=== PATIENT | female | born 1950 | race Caucasian/White ===

== ENCOUNTER 2018-10-14 11:50 | Inpatient (IN) | payer MEDICARE, BC ==
[~2018-10-14] VITALS: Ht 161.3 cm; Wt 68.0 kg
--- NOTE | ~2018-10-14 | EC ---
PATIENT:MATHIEU YOUNGER DATE OF SERVICE: 10/14/18 SEX: F MEDICAL RECORD: [id number] DATE OF : 54 LOCATION:D.MS [facility] AGE OF PATIENT: 68 ADMISSION DATE: 10/14/18 REFERRING PHYSICIAN: INTERPRETING PHYSICIAN: SUREKHA HERRERA MD ECHOCARDIOGRAM REPORT ECHO CHARGES 4 ECHO COMPLETE Date: 10/15/18 CLINICAL DIAGNOSIS: HTN ECHOCARDIOGRAPHIC MEASUREMENTS (adult normal given) AC root (d.<3.7cm) 3.4 cm LV Septum d (<1.2 cm> 1.2 cm Valve Excursion 1.6 cm LV Septum (systole) 1.6 cm Left Atria (s.<4.0cm> 3.4 cm LVPW d(<1.2cm) 1.6 cm RV (d.<2.3cm) 3.6 cm LVPW (sytole) 1.7 cm LV diastole(<5.6CM) 4.5 cm MV E-F(>70mm/sec) cm LV systole 3.0 cm LVOT Diameter 1.7 cm MV exc.(>10mm) 1.2 cm Est.ejection fraction (50-75%) % DOPPLER: LVIT cm/sec A 112 cm/sec E 101 cm/sec LA cm/sec RVSP 21 mmHg LVOT 154 cm/sec AOP1/2T m/s Asc. Ao 165 cm/sec RVOT 69 cm/sec RA cm/sec PA 112 cm/sec AV Gradient Peak 10.95mmHg AV Mean 5.04 mmHg AV Area 2.5 cm MV Gradient Peak 5.77 mmHg MV Mean 2.57 mmHg MV Area cm COMMENTS: Textbook Associate: Brock WISE [employer] Manager: 1 Dr. Herrera TAPE# PACS Pericardial Effusion N DATE OF SERVICE: 10/15/2018 FINDINGS: 1. Left ventricular chamber size is within normal limits. Left ventricular systolic function is normal. Overall ejection fraction is estimated at 60%. 2. Left atrium, right atrium, and right ventricle chamber sizes are within normal limit. 3. Valvular structures have normal structure and motion. 4. Doppler interrogation reveals no significant valvular insufficiency or stenosis. Pulmonary systolic pressure is normal, estimated at 21 mmHg. ECHOCARDIOGRAM REPORT [id number] MATHIEU YOUNGER 5. No evidence of pericardial effusion or left ventricular thrombus. TRANSINT:[id number] Voice Confirmation ID: [id number] DOCUMENT ID: [id number] SUREKHA HERRERA MD CC: [id number] DICTATION DATE: 10/15/18 1335 CORRECTIONAL THERAPY DIRECTOR: 10/15/18 1424 ADM IN [place] [address] [place] [address]
[2018-10-14] MEDS ORDERED: TENORMIN50 MG PO (11:56)
[2018-10-14] MEDS ORDERED: NORVASC2.5 MG PO (11:57)
[2018-10-14 13:07] LABS: HEMATOCRIT 48.6 % (36.0-48.0); HEMOGLOBIN 17.2 g/dL (12-16); MCH 32.1 pg (26.0-34.0); MCHC 35.4 g/dL (31.0-37.0); MCV 90.7 fL (80.0-100.0); MEAN PLATELET VOLUME 11.3 fL (7.4-10.4); PLATELET COUNT 160 10x3/uL (130-400); RBC 5.36 10x6/uL (4.00-5.40); RDW 14.1 % (11.5-14.5); WBC 25.8 10x3/uL (4.8-10.8)
[2018-10-14 13:16] LABS: ANION GAP 22.6 mmol/L (8-16); CALCIUM 8.4 mg/dL (8.5-10.1); CARBON DIOXIDE 18.9 mmol/L (21.0-32.0); CREATININE - SERUM 1.3 mg/dL (0.6-1.3); POTASSIUM - SERUM 3.5 mmol/L (3.5-5.1); TROPONIN-I 0.052 ng/mL (0.000-0.060)
[2018-10-14 13:30] LABS: ALBUMIN 2.9 g/dL (3.4-5.0); BILIRUBIN - TOTAL 2.01 mg/dL (0.2-1.3); PROTEIN - SERUM 7.6 g/dL (6.4-8.2)
[2018-10-14 13:58] LABS: LYMPHOCYTES 8 % (15-50); MONOCYTES 10 % (2-11); NEUTROPHILS 71 % (40-80); PLATELET ESTIMATE NORMAL; ROULEAUX OCC
[2018-10-14 15:47] LABS: APPEARANCE CLEAR (CLEAR); COLOR DK YELLOW (YELLOW); NITRITE NEGATIVE (NEGATIVE); PROTEIN 1+ mg/dL (NEGATIVE)
[2018-10-14 15:48] LABS: BILIRUBIN NEGATIVE (NEGATIVE); EPITHELIAL CELLS OCC /hpf (0-5); GLUCOSE NEGATIVE (NEGATIVE); KETONE NEGATIVE (NEGATIVE); RED CELLS - URINE OCC /hpf (0-5); UROBILINOGEN NORMAL (NORMAL); WHITE CELLS - URINE 0-5 /hpf (0-5)
[2018-10-14 15:49] LABS: BACTERIA MANY /hpf (NONE SEEN)
[2018-10-14 15:50] LABS: AMORPHOUS SEDIMENT <1+ /lpf (NONE SEEN)
[2018-10-14 21:55] VITALS: BP 115/54
[2018-10-14 22:43] VITALS: BP 115/54; BMI 26.2
[2018-10-15] VITALS: BP 120/56
[2018-10-15 05:38] VITALS: BP 110/52
[2018-10-15 06:41] LABS: HEMATOCRIT 34.4 % (36.0-48.0); HEMOGLOBIN 12.1 g/dL (12-16); MCH 31.9 pg (26.0-34.0); MCHC 35.2 g/dL (31.0-37.0); MCV 90.8 fL (80.0-100.0); MEAN PLATELET VOLUME 11.8 fL (7.4-10.4); PLATELET COUNT 200 10x3/uL (130-400); RBC 3.79 10x6/uL (4.00-5.40); RDW 14.4 % (11.5-14.5); WBC 24.8 10x3/uL (4.8-10.8)
[2018-10-15 07:10] LABS: ALKALINE PHOSPHATASE 70 U/L (46-116); BILIRUBIN - TOTAL 1.82 mg/dL (0.2-1.3); CALC OSMOLALITY 282 mosm/kg (275-300); CALCIUM 7.9 mg/dL (8.5-10.1); CHLORIDE - SERUM 101 mmol/L (98-107); CKMB 3.5 U/L (0.0-3.6); CREATININE - SERUM 1.1 mg/dL (0.6-1.3); GLUCOSE 127 mg/dL (74-106); PROTEIN - SERUM 6.8 g/dL (6.4-8.2); SODIUM 138 mmol/L (136-145); UREA NITROGEN 26 mg/dL (7-18); eGFR NON AFRICAN AMERICAN 53 mL/min (90-120)
[2018-10-15 07:14] LABS: ALBUMIN 2.1 g/dL (3.4-5.0); ALT (SGPT) 119 U/L (10-68); CREATINE KINASE 6401 UL (21-215)
[2018-10-15 07:16] LABS: TROPONIN-I 0.258 ng/mL (0.000-0.060)
[2018-10-15 07:17] LABS: POTASSIUM - SERUM 2.5 mmol/L (3.5-5.1)
[2018-10-15 08:18] LABS: ANISOCYTOSIS OCC; LYMPHOCYTES 3 % (15-50); MONOCYTES 7 % (2-11); NEUTROPHILS 75 % (40-80); ROULEAUX OCC
[2018-10-15 08:25] LABS: PLATELET ESTIMATE NORMAL
[2018-10-15 08:45] VITALS: BP 111/53
[2018-10-15 12:45] VITALS: BP 111/58
[2018-10-15 13:13] VITALS: Ht 161.3 cm; Wt 68.0 kg
--- NOTE | 2018-10-15 13:25 | HP ---
PATIENT: MATHIEU YOUNGER MEDICAL RECORD: [id number] ACCOUNT: [id number] LOCATION:D.MS [facility] : [birth year] ADMISSION DATE: 10/14/18 PCP: ADA PORTER HISTORY AND PHYSICAL EXAMINATION REASON FOR ADMISSION: Fever, confusion, and diarrhea. HISTORY OF PRESENT ILLNESS: The patient is a 68-year-old 3 black female who presents with 2-day history of intermittent diarrhea, fever and chills, and not feeling well. She has had minimal cough, her states. He brought her to the Emergency Room for these reasons. He said her stools have been 2-3, loose, and watery for 2 days; no previous antibiotics. He said she is little bit confused today as well. She denies chest pain. She has coughed up a little bit of bloody sputum. PAST MEDICAL HISTORY: Essential hypertension, hyperlipidemia, and remote history of depression. PAST SURGICAL HISTORY: times 2. She is 5. FAMILY HISTORY: Mother at 90 of old age. Father in his 40s with postoperative complications. Maternal grandmother lived to be 95. 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 ALLERGIES: None mentioned. HABITS: Smoking history is half pack a day for 40 years. Denies alcohol use. HOME MEDICATIONS: Norvasc 2.5 mg daily and atenolol 50 mg a day. REVIEW OF SYSTEMS: GENERAL: Chills without documented fever, some confusion, poor appetite. HEENT: No recent visual change, sinus congestion, sore throat, or hearing difficulty. RESPIRATORY: She has little bit of cough and has bloody sputum, but no shortness of breath or chest pain. CARDIAC: No palpitations, exertional chest pain, or claudication. Positive history of hypertension. GASTROINTESTINAL: She has had no nausea. She has had 2-3 loose stools with vague abdominal cramping for the last 2 days. ENDOCRINE: Denies polyuria, polydipsia, heat and cold intolerance. NEUROLOGIC: No history of stroke, TIA, vascular headaches, or seizures. PSYCHIATRIC: Denies depressed moods. She had some intermittent anxiety and depression in the past, not treated recently. PHYSICAL EXAMINATION: VITAL SIGNS: Temperature is 100 degrees Fahrenheit tympanic, pulse 96 and regular, respirations are 18, blood pressure 124/66, and O2 sat is 97% on 2 liters. GENERAL: The patient is somewhat confused without localizing neurologic signs. She gives her history. HEENT: Normocephalic. Eyes are clear and nonicteric. Oropharynx has dry mucous membranes. HISTORY AND PHYSICAL [id number] MATHIEU YOUNGER NECK: Supple. No bruits. CHEST: Decreased breath sounds in the right base with inspiratory wheezes in right upper lobe. HEART: Tachycardic without murmur. BREASTS: Symmetrical. ABDOMEN: Mildly obese, soft, and nontender with active bowel sounds throughout. There is a small ventral hernia that is reducible. RECTAL: Deferred. EXTREMITIES: No CC&E. NEUROLOGIC: Oriented to person and place, but not time. No motor or sensory deficits are appreciated. Gait was not tested. LABORATORY DATA: Initial labs showed a white count of 25,000 with a left shift, H&H of 17 and 48.6 respectively, and platelet count is 160,000. Chemistry; potassium was 2.6 and lactic acid was 3.2. AST and ALT of 99 and 90 respectively. BUN and creatinine are 32 and 1.3 respectively. Serum CO2 is 18.9. Blood gas shows a pH of 7.5, pCO2 of 26, and pO2 of 60 on room air. Urinalysis; negative ketones, 1+ blood, 0-5 white cells, and many bacteria. Influenza screen A and B currently pending. Chest x-ray reveals right lower lobe pneumonia. CT of abdomen and pelvis was performed showing a small ventral hernia, not strangulated. Solid airspace disease in the right lower lobe. Gallbladder, liver, spleen, pancreas, and adrenals glands appear normal. Kidneys are unremarkable. Uterus is normal. ASSESSMENT: 1. Community-acquired right lower lobe pneumonia. 2. Febrile illness. 3. Bacteriuria. 4. Dehydration. 5. Possible sepsis. 6. History of hypertension. 7. Osteoarthritis of lumbar spine. PLAN: The patient has been given fluids in the ED. We will give IV potassium replacement and pulmonary toilet with DuoNeb updrafts q. 4 hours. Blood and urine have been cultured, placed on IV Levaquin and Zithromax. Further workup pending clinical course. TRANSINT:[id number] Voice Confirmation ID: [id number] DOCUMENT ID: [id number] PAULINO LARSON MD at 1325 CC: [id number] DICTATION DATE: 10/14/18 175 CHAIRMAN CEO: 10/14/18 1829 ADM IN [place] [id number] [place] [id number]
[2018-10-15 16:37] VITALS: BP 110/57
[2018-10-15 20:00] VITALS: BP 126/64
[2018-10-16] VITALS: BP 131/61
[2018-10-16 04:00] VITALS: BP 123/61
[2018-10-16 06:08] LABS: BASOPHILS 0.2 % (0-2); EOSINOPHILS 0.3 % (0-7); HEMATOCRIT 36.6 % (36.0-48.0); HEMOGLOBIN 12.9 g/dL (12-16); IMMATURE GRANULOCYTES 1.8 % (0-5); LYMPHOCYTES 10.2 % (15-50); MCH 31.5 pg (26.0-34.0); MCHC 35.2 g/dL (31.0-37.0); MCV 89.5 fL (80.0-100.0); MEAN PLATELET VOLUME 11.3 fL (7.4-10.4); MONOCYTES 4.4 % (2-11); NEUTROPHILS 83.1 % (40-80); PLATELET COUNT 184 10x3/uL (130-400); RBC 4.09 10x6/uL (4.00-5.40); RDW 14.5 % (11.5-14.5)
[2018-10-16 06:19] LABS: ALBUMIN 1.7 g/dL (3.4-5.0); ALKALINE PHOSPHATASE 77 U/L (46-116); BILIRUBIN - TOTAL 1.68 mg/dL (0.2-1.3); CALCIUM 7.4 mg/dL (8.5-10.1); CARBON DIOXIDE 18.6 mmol/L (21.0-32.0); CHLORIDE - SERUM 107 mmol/L (98-107); GLUCOSE 106 mg/dL (74-106); POTASSIUM - SERUM 3.2 mmol/L (3.5-5.1); PROTEIN - SERUM 5.8 g/dL (6.4-8.2); SODIUM 139 mmol/L (136-145)
[2018-10-16 06:26] LABS: ALT (SGPT) 310 U/L (10-68); CALC OSMOLALITY 279 mosm/kg (275-300); CREATININE - SERUM 0.8 mg/dL (0.6-1.3); UREA NITROGEN 18 mg/dL (7-18); eGFR NON AFRICAN AMERICAN 76 mL/min (90-120)
[2018-10-16 06:34] LABS: WBC 11.4 10x3/uL (4.8-10.8)
[2018-10-16 08:45] VITALS: BP 120/58
[2018-10-16 12:45] VITALS: BP 137/68
--- NOTE | 2018-10-16 15:41 | MORECARE ---
CASE MANAGEMENT DISCHARGE SUMMARY PATIENT: MATHIEU YOUNGER UNIT: [id number] ADM DATE: 10/14/18 AGE: 68 : 52 SEX: F ROOM/BED: D.2224 AUTHOR: WILL REYNOSO PHYSICIAN: REFERRING PHYSICIAN: PAULINO MCNULTY MD DATE OF SERVICE: 10/16/18 Discharge Plan Patient Name: MATHIEU YOUNGER Facility: [facility]:[place] : 1950 Planned Disposition: Home Anticipated Discharge Date: Discharge Date: Expected LOS: Initial Reviewer: [email or web address] Initial Review Date: 10/16/2018 Generated: 10/16/18 4:41 pm Comments DCP- Discharge Planning Updated by [email or web address]: Liyah Burk on 10/16/18 2:[address] Patient Name: MATHIEU YOUNGER Admission Status: ER Accout number: [id number] Admission Date: 10-14-2018 : 1950 Admission Diagnosis: Attending: PAULINO MCNULTY Current LOS: 2 Anticipated DC Date: Planned Disposition: Home Primary Insurance: MEDICARE A & B Discharge Planning Comments: CM met with patient to discuss discharge planning, she is alone in the room. She states she is independent with all ADL's and IADL's. States she lives with her . States her will take her home on discharge. States she has a cane but doesn't use it. States she does not need any other DME. Declines need for home health. No needs identified. CM will continue to follow and assist with discharge planning/needs. Brand Specialist: Liyah Burk DCPIA - Discharge Planning Initial Assessment Updated by [email or web address]: Liyah Burk on 10/16/18 3:37 pm * Is the patient Alert and Oriented? Yes * How many steps to enter\exit or inside your home? 0/several * PCP Dr. Mcnulty * Pharmacy [facility] [address] * Preadmission Environment Home with Family * ADLs Independent * Equipment Cane * List name and contact numbers for known caregivers / representatives who currently or will assist patient after discharge: Andi - - [phone] * Verbal permission to speak to the caregivers and representatives has been obtained from the patient. Yes * Community resources currently utilized None * Additional services required to return to the preadmission environment? No * Can the patient safely return to the preadmission environment? Yes * Has this patient been hospitalized within the prior 30 days at any hospital? No Patient Name: MATHIEU YOUNGER Page [phone] at 1541 All edits/amendments must be made on the electronic document DICTATION DATE: 10/16/181540 CLOTH SPREADER: JENS 10/16/181540 RPT#: [id number] DC DATE: STATUS: ADM IN [facility] [address] [place] [address] END OF REPORT
[2018-10-16 16:48] VITALS: BP 152/78
[2018-10-16 20:28] VITALS: BP 136/72
[2018-10-17 00:30] VITALS: BP 140/59
[2018-10-17 04:58] VITALS: BP 143/51
[2018-10-17 07:21] LABS: HEPATITIS C ANTIBODY <0.1 S/CO RAT (0.0-0.9)
[2018-10-17 07:34] LABS: BASOPHILS 0.3 % (0-2); EOSINOPHILS 1.6 % (0-7); HEMATOCRIT 35.4 % (36.0-48.0); HEMOGLOBIN 12.3 g/dL (12-16); IMMATURE GRANULOCYTES 2.1 % (0-5); LYMPHOCYTES 10.7 % (15-50); MCH 31.3 pg (26.0-34.0); MCHC 34.7 g/dL (31.0-37.0); MCV 90.1 fL (80.0-100.0); MEAN PLATELET VOLUME 11.7 fL (7.4-10.4); MONOCYTES 6.7 % (2-11); NEUTROPHILS 78.6 % (40-80); PLATELET COUNT 208 10x3/uL (130-400); RBC 3.93 10x6/uL (4.00-5.40); RDW 14.7 % (11.5-14.5); WBC 12.6 10x3/uL (4.8-10.8)
[2018-10-17 08:14] LABS: ALBUMIN 1.8 g/dL (3.4-5.0); ALKALINE PHOSPHATASE 84 U/L (46-116); ALT (SGPT) 371 U/L (10-68); BILIRUBIN - TOTAL 1.26 mg/dL (0.2-1.3); CALC OSMOLALITY 283 mosm/kg (275-300); CALCIUM 7.8 mg/dL (8.5-10.1); CARBON DIOXIDE 20.3 mmol/L (21.0-32.0); CHLORIDE - SERUM 109 mmol/L (98-107); CREATININE - SERUM 0.7 mg/dL (0.6-1.3); GLUCOSE 89 mg/dL (74-106); POTASSIUM - SERUM 3.6 mmol/L (3.5-5.1); PROTEIN - SERUM 5.8 g/dL (6.4-8.2); SODIUM 142 mmol/L (136-145); UREA NITROGEN 17 mg/dL (7-18); eGFR NON AFRICAN AMERICAN 89 mL/min (90-120)
[2018-10-17 08:34] VITALS: BP 143/74
[2018-10-17 15:28] VITALS: BP 151/76
[2018-10-17 21:45] VITALS: BP 155/91
[2018-10-18 04:37] VITALS: BP 141/57
[2018-10-18 05:34] LABS: ALBUMIN 1.9 g/dL (3.4-5.0); ALKALINE PHOSPHATASE 84 U/L (46-116); ALT (SGPT) 339 U/L (10-68); BILIRUBIN - TOTAL 1.07 mg/dL (0.2-1.3); CALC OSMOLALITY 275 mosm/kg (275-300); CALCIUM 7.8 mg/dL (8.5-10.1); CARBON DIOXIDE 19.2 mmol/L (21.0-32.0); CHLORIDE - SERUM 106 mmol/L (98-107); CREATININE - SERUM 0.7 mg/dL (0.6-1.3); GLUCOSE 105 mg/dL (74-106); POTASSIUM - SERUM 3.1 mmol/L (3.5-5.1); SODIUM 138 mmol/L (136-145); UREA NITROGEN 13 mg/dL (7-18); eGFR NON AFRICAN AMERICAN 89 mL/min (90-120)
[2018-10-18 05:40] LABS: BASOPHILS 0.4 % (0-2); EOSINOPHILS 2.2 % (0-7); HEMATOCRIT 35.5 % (36.0-48.0); HEMOGLOBIN 12.5 g/dL (12-16); IMMATURE GRANULOCYTES 3.6 % (0-5); LYMPHOCYTES 10.7 % (15-50); MCH 31.3 pg (26.0-34.0); MCHC 35.2 g/dL (31.0-37.0); MCV 88.8 fL (80.0-100.0); MEAN PLATELET VOLUME 10.9 fL (7.4-10.4); MONOCYTES 6.6 % (2-11); NEUTROPHILS 76.5 % (40-80); PLATELET COUNT 209 10x3/uL (130-400); WBC 13.4 10x3/uL (4.8-10.8)
[2018-10-18 09:08] VITALS: BP 135/76
[2018-10-18 16:00] VITALS: BP 135/93
[2018-10-18 21:13] VITALS: BP 150/87
[2018-10-19] VITALS: BP 130/39
[2018-10-19 03:00] VITALS: BP 145/78
[2018-10-19 06:57] LABS: BASOPHILS 0.5 % (0-2); EOSINOPHILS 2.3 % (0-7); HEMATOCRIT 35.7 % (36.0-48.0); HEMOGLOBIN 12.6 g/dL (12-16); IMMATURE GRANULOCYTES 3.9 % (0-5); LYMPHOCYTES 11.9 % (15-50); MCH 31.3 pg (26.0-34.0); MCHC 35.3 g/dL (31.0-37.0); MCV 88.8 fL (80.0-100.0); MEAN PLATELET VOLUME 11.5 fL (7.4-10.4); MONOCYTES 5.4 % (2-11); PLATELET COUNT 229 10x3/uL (130-400); RBC 4.02 10x6/uL (4.00-5.40); RDW 14.2 % (11.5-14.5); WBC 12.8 10x3/uL (4.8-10.8)
[2018-10-19 07:10] LABS: ALBUMIN 1.9 g/dL (3.4-5.0); ALKALINE PHOSPHATASE 70 U/L (46-116); ALT (SGPT) 340 U/L (10-68); CALC OSMOLALITY 278 mosm/kg (275-300); CALCIUM 7.8 mg/dL (8.5-10.1); CHLORIDE - SERUM 106 mmol/L (98-107); CREATININE - SERUM 0.6 mg/dL (0.6-1.3); GLUCOSE 84 mg/dL (74-106); POTASSIUM - SERUM 3.3 mmol/L (3.5-5.1); PROTEIN - SERUM 5.7 g/dL (6.4-8.2); SODIUM 141 mmol/L (136-145); UREA NITROGEN 11 mg/dL (7-18); eGFR NON AFRICAN AMERICAN > 90 mL/min (90-120)
[2018-10-19] MEDS ORDERED: ZITHROMAX200 MG/5 M PO (07:24)
[2018-10-19] MEDS ORDERED: LEVAQUIN750 MG PO (07:25)
[2018-10-19] MEDS ORDERED: MUCINEX DM ER1 EAC1 PO (07:25)
[2018-10-19 08:06] VITALS: BP 139/74
--- NOTE | 2018-10-19 09:19 | MORECARE ---
CASE MANAGEMENT DISCHARGE SUMMARY PATIENT: MATHIEU YOUNGER UNIT: [id number] ADM DATE: 10/14/18 AGE: 68 : 52 SEX: F ROOM/BED: D.2224 AUTHOR: WILL REYNOSO PHYSICIAN: REFERRING PHYSICIAN: PAULINO MCNULTY MD DATE OF SERVICE: 10/19/18 Discharge Plan Patient Name: MATHIEU YOUNGER Facility: [facility]:[place] : 1950 Planned Disposition: Home Anticipated Discharge Date: Discharge Date: Expected LOS: Initial Reviewer: [email or web address] Initial Review Date: 10/16/2018 Generated: 10/19/18 10:19 am Comments DCP- Discharge Planning Updated by [email or web address]: Liyah Burk on 10/19/18 8:[address] Patient Name: MATHIEU YOUNGER Encounter No: [id number] : 1950 Primary Insurance: MEDICARE A & B Anticipated DC Date: Planned Disposition: Home External Planned Provider: : DCP follow-up note: Patient and family in agreement with discharge plan. Declines need for DME or home health. No changes to plan. Case management will follow and assist as needed. Liyah Burk DCP- Discharge Planning Updated by [email or web address]: Liyah Burk on 10/16/18 2:[address] Patient Name: MATHIEU YOUNGER Admission Status: ER Accout number: [id number] Admission Date: 10-14-2018 : 1950 Admission Diagnosis: Attending: PAULINO MCNULTY Current LOS: 2 Anticipated DC Date: Planned Disposition: Home Primary Insurance: MEDICARE A & B Discharge Planning Comments: CM met with patient to discuss discharge planning, she is alone in the room. She states she is independent with all ADL's and IADL's. States she lives with her . States her will take her home on discharge. States she has a cane but doesn't use it. States she does not need any other DME. Declines need for home health. No needs identified. CM will continue to follow and assist with discharge planning/needs. Orthotic Fitter: Liyah Burk DCPIA - Discharge Planning Initial Assessment Updated by [email or web address]: Liyah Burk on 10/16/18 3:37 pm * Is the patient Alert and Oriented? Yes * How many steps to enter\exit or inside your home? 0/several * PCP Dr. Mcnulty * Pharmacy [facility] [address] * Preadmission Environment Home with Family * ADLs Independent * Equipment Cane * List name and contact numbers for known caregivers / representatives who currently or will assist patient after discharge: Andi Carney [email or web address] - [phone] * Verbal permission to speak to the caregivers and representatives has been obtained from the patient. Yes * Community resources currently utilized None * Additional services required to return to the preadmission environment? No * Can the patient safely return to the preadmission environment? Yes * Has this patient been hospitalized within the prior 30 days at any hospital? No Coverage Notice Reviewer: [email or web address] Rommel Burk Notice Issued Date-Time: 10/19/2018 9:14 Notice Type: IM Discharge Notice Notice Delivered To: Patient Relationship to Patient: Self Director Of Claims Name: Delivery Method: HAND - Hand Delivered Lakshmi Days: Prior Verbal Notification: Recipient Understood Notice: Yes Recipient Signature: Yes Med Rec Note Co-signed by Attending: Coverage Notice Comment: IMM explained, signed, copy given, original placed in MR Last DP export: 10/16/18 2:41 pm Patient Name: MATHIEU YOUNGER Page [phone] at 0919 All edits/amendments must be made on the electronic document DICTATION DATE: 10/19/18917 LOOP DRIER OPERATOR: JENS 10/19/18917 RPT#: [id number] DC DATE: STATUS: ADM IN [facility] [address] [place] [address] END OF REPORT
--- NOTE | 2018-10-20 07:16 | MORECARE ---
CASE MANAGEMENT DISCHARGE SUMMARY PATIENT: MATHIEU YOUNGER UNIT: [id number] ADM DATE: 10/14/18 AGE: 68 : 52 SEX: F ROOM/BED: D.2224 AUTHOR: WILL REYNOSO PHYSICIAN: REFERRING PHYSICIAN: PAULINO MCNULTY MD DATE OF SERVICE: 10/20/18 Discharge Plan Patient Name: MATHIEU YOUNGER Facility: [facility]:[place] : 1950 Planned Disposition: Home Anticipated Discharge Date: Discharge Date: 10/19/2018 Expected LOS: 0 Initial Reviewer: [email or web address] Initial Review Date: 10/16/2018 Generated: 10/20/18 8:16 am Comments DCP- Discharge Planning Updated by [email or web address]: Liyah Burk on 10/19/18 8:[address] Patient Name: MATHIEU YOUNGER Encounter No: [id number] : 1950 Primary Insurance: MEDICARE A & B Anticipated DC Date: Planned Disposition: Home External Planned Provider: : DCP follow-up note: Patient and family in agreement with discharge plan. Declines need for DME or home health. No changes to plan. Case management will follow and assist as needed. Liyah Burk DCP- Discharge Planning Updated by [email or web address]: Liyah Burk on 10/16/18 2:[address] Patient Name: MATHIEU YOUNGER Admission Status: ER Accout number: [id number] Admission Date: 10-14-2018 : 1950 Admission Diagnosis: Attending: PAULINO MCNULTY Current LOS: 2 Anticipated DC Date: Planned Disposition: Home Primary Insurance: MEDICARE A & B Discharge Planning Comments: CM met with patient to discuss discharge planning, she is alone in the room. She states she is independent with all ADL's and IADL's. States she lives with her . States her will take her home on discharge. States she has a cane but doesn't use it. States she does not need any other DME. Declines need for home health. No needs identified. CM will continue to follow and assist with discharge planning/needs. Maintenance Helper Utility Engineer: Liyah Burk DCPIA - Discharge Planning Initial Assessment Updated by [email or web address]: Liyah Burk on 10/16/18 3:37 pm * Is the patient Alert and Oriented? Yes * How many steps to enter\exit or inside your home? 0/several * PCP Dr. Mcnulty * Pharmacy [facility] on [facility] [address] * Preadmission Environment Home with Family * ADLs Independent * Equipment Cane * List name and contact numbers for known caregivers / representatives who currently or will assist patient after discharge: Andi - [email or web address] - [phone] * Verbal permission to speak to the caregivers and representatives has been obtained from the patient. Yes * Community resources currently utilized None * Additional services required to return to the preadmission environment? No * Can the patient safely return to the preadmission environment? Yes * Has this patient been hospitalized within the prior 30 days at any hospital? No Coverage Notice Reviewer: [id number] - Liyah Kumarjennifer Notice Issued Date-Time: 10/19/2018 9:14 Notice Type: IM Discharge Notice Notice Delivered To: Patient Relationship to Patient: Self Plant Technician Name: Delivery Method: HAND - Hand Delivered Lakshmi Days: Prior Verbal Notification: Recipient Understood Notice: Yes Recipient Signature: Yes Med Rec Note Co-signed by Attending: Coverage Notice Comment: IMM explained, signed, copy given, original placed in MR Last DP export: 10/19/18 8:19 am Patient Name: MATHIEU YOUNGER Page [phone] at 0716 All edits/amendments must be made on the electronic document DICTATION DATE: 10/20/18714 CHIEF ACCOUNTANT: JENS 10/20/18714 RPT#: [id number] DC DATE:10/19/18 STATUS: DIS IN [facility] [address] [place] [address] END OF REPORT
== END 2018-10-19 09:45 | disposition home or self-care (01) | DRG 871 ==
LOC: D.ER 11:50 → D.EDHOLD 17:30 → D.MS 17:30
PROVIDERS: Family Medicine; ADMIT Family Medicine
DX: A41.9 Sepsis, unspecified organism (principal); J18.1 Lobar pneumonia, unspecified organism; I24.8 Other forms of acute ischemic heart disease; E86.0 Dehydration; I10 Essential (primary) hypertension; E78.5 Hyperlipidemia, unspecified; M47.816 Spondylosis without myelopathy or radiculopathy, lumbar region; R41.0 Disorientation, unspecified; R94.5 Abnormal results of liver function studies

== ENCOUNTER → 2018-11-25 08:35 | Outpatient (CLI) | payer MEDICARE, BC ==
[2018-10-15 13:13] VITALS: BMI 26.1
[~2018-11-25 08:35] MED LIST: LEVAQUIN750 MG PO; MUCINEX DM ER1 EAC1 PO; NORVASC2.5 MG PO; TENORMIN50 MG PO; ZITHROMAX200 MG/5 M PO
== END | disposition home or self-care (01) ==
LOC: D.NM 10-28 13:00
DX: R10.11 Right upper quadrant pain (principal); R93.89 Abnormal findings on diagnostic imaging of other specified body structures; R94.5 Abnormal results of liver function studies